=== PATIENT | female | born 1975 | race Caucasian/White ===

== ENCOUNTER 2024-08-30 06:11 | Day surgery (SDC) | payer OTHER ==
[2024-08-24 13:25] VITALS: BP 140/90
[~2024-08-30] VITALS: Ht 165.1 cm; Wt 90.7 kg
[~2024-08-30 06:11] MED LIST: ATORVASTATIN CA20 MG PO; FLUTICASONE-SA1 EAC3 IH; FOLIC ACID0.8 M1 PO; HYDRODIURIL12.5 MG PO; IRON236 MG PO; LOSARTAN POTASS50 MG PO; PROAIR RESPICL90 MCG IH; SINGULAIR10 MG PO
[2024-08-30] MEDS ORDERED: POVIDONE-IODINE 118 ML BOTT TOP ONE (12:45)
[2024-08-30] MEDS ORDERED: ACETAMINOPHEN 500 MG GEL..CAP PO ONE (13:15)
== END 2024-08-30 19:35 | disposition home or self-care (01) ==
LOC: CIR.AMB 06:11
PROVIDERS: ATTEND Obstetrics & Gynecology
DX: N84.0 Polyp of corpus uteri (principal); D25.0 Submucous leiomyoma of uterus; N90.89 Other specified noninflammatory disorders of vulva and perineum; L82.1 Other seborrheic keratosis; D28.0 Benign neoplasm of vulva; N95.0 Postmenopausal bleeding; Z88.6 Allergy status to analgesic agent; I10 Essential (primary) hypertension; E78.5 Hyperlipidemia, unspecified; J45.909 Unspecified asthma, uncomplicated